=== PATIENT | male | born 1975 | race African-American/Black ===

== ENCOUNTER 2016-06-23 11:28 | Emergency (ER) | payer BC, OTHER ==
[~2016-06-23 11:28] MED LIST: ACET325T9 PO; CIPR250T PO; OMEP20TA63 PO; SULF1TAB24 PO
[2016-06-23 11:48] VITALS: BP 140/82
[2016-06-23 12:41] LABS: BASO % 0 % (0-3); EOS % 0 % (0-3); HEMATOCRIT 45.9 % (39.0-53.0); LYMPH # 5.7 x10^3/uL (1.0-4.8); LYMPH % 34 % (24-48); MEAN CORPUSCULAR HEMOGLOBIN 28 pg (25-35); MEAN CORPUSCULAR HGB CONC 33 g/dL (31-37); MEAN CORPUSCULAR VOLUME 85 fL (79-100); MONO % 8 % (0-9); NEUT % 58 % (31-73); PLATELET COUNT 225 x10^3/uL (140-400); RED BLOOD COUNT 5.42 x10^6/uL (4.30-5.70); RED CELL DISTRIBUTION WIDTH 15.9 % (11.5-14.5); WHITE BLOOD COUNT 16.7 x10^3/uL (4.0-11.0)
[2016-06-23 12:42] LABS: BILIRUBIN,URINE NEGATIVE (NEG); GLUCOSE,URINE NEGATIVE (NEG); NITRITE,URINE NEGATIVE (NEG); PH,URINE 6.5; PROTEIN,URINE NEGATIVE (NEG-TRACE)
[2016-06-23 12:48] LABS: CALCIUM 9.4 mg/dL (8.5-10.1); GFR 101.2; POTASSIUM 3.8 mmol/L (3.5-5.1)
[2016-06-23 12:58] LABS: BACTERIA,URINE 0 /HPF (0-FEW); SPERM,URINE PRESENT /HPF
--- NOTE | 2016-06-23 13:19 | PHYS DOC ---
Past Medical History Past Medical History: UTI, Other Additional Past Medical Histor: chronic pain,NEUROPATHY Past Surgical History: No Surgical History Alcohol Use: Occasionally Drug Use: Phencyclidine Social History Narrative: "I USE PCP EVERY ONCE IN AWHILE" Adult General Chief Complaint Chief Complaint: URINARY RETENTION HPI HPI Patient is a 40 year old male who presents with urinary problem. Patient reports for the past two weeks he has been having some difficulty urinating. He says that he is able to void after multiple tries. In addition, patient reports for the past two weeks he has had mild cough and has felt there is swelling in his throat. No fever. Patient concerned about the possibility of STD; his girlfriend has come to the ED as well with symptoms relating to this. Patient denies any dysuria, penile discharge, skin lesions, penile or testicular pain. Of note, patient currently takes prednisone and gabapentin for a neurological problem for which he follows at (he says he has been going there for a number of months). His symptoms include BLE numbness and weakness. He has undergone extensive workup, including LP and MRI. The current thought is that he has atypical presentation of MS or neurosarcoidosis. He denies any prior difficulty with urination. Patient also says that since he has been taking the steroids his symptoms (weakness in particular) has greatly improved. No problems with bowel movements. No back pain. No other acute complaints. Review of Systems Review of Systems Constitutional: Denies fever or chills Eyes: Denies change in visual acuity or eye pain HENT: Sensation of throat swelling Respiratory: Denies cough or shortness of breath Cardiovascular: Denies chest pain GI: Denies abdominal pain, nausea, vomiting, bloody stools or diarrhea : Difficulty with urination. Denies dysuria or hematuria, penile or testicular pain, skin lesions Musculoskeletal: Denies back pain or joint pain Integument: Denies rash or skin lesions Neurologic: Denies headache, focal weakness or sensory changes Current Medications Current Medications Current Medications Medications (Trade) Dose Ordered Sig/Young Start Time Stop Time Status Last Admin Dose Admin Azithromycin (Zithromax) 1,000 mg 1X ONCE 06/23/16 15:00 06/23/16 15:02 DC 06/23/16 15:00 1,000 MG Ceftriaxone Sodium (Rocephin Im) 250 mg 1X ONCE 06/23/16 15:00 06/23/16 15:02 DC 06/23/16 15:00 250 MG Allergies Allergies Allergies Coded Allergies Type Severity Reaction Last Updated Verified No Known Drug Allergies 08/04/13 No Physical Exam Physical Exam Constitutional: Well developed, well nourished, no acute distress, non-toxic appearance HENT: Normocephalic, atraumatic, bilateral external ears normal; oropharynx without erythema or exudate, airway widely patent Eyes: PERRL, EOMI, conjunctiva normal, no discharge Neck: Normal range of motion, no stridor; no swelling noted, no lymphadenopathy Cardiovascular: Heart rate normal, regular rhythm, no murmur Lungs & Thorax: Bilateral breath sounds clear to auscultation Abdomen: Bowel sounds normal, soft, non-distended, no TTP Skin: Warm, dry, no erythema, no rash Back: No tenderness, no deformity Extremities: No obvious deformity, no edema Neurologic: Alert and oriented X 3, GCS 15, strength in LLE mildly diminished compared to RLE, BLE generally numb to light touch throughout; 2+ DP pulse b/l; patellar reflexes brisk b/l; 4-5 beats of clonus noted in b/l ankles Current Patient Data Vital Signs Vital Signs Date Time Temp Pulse Resp B/P Pulse Ox O2 Delivery O2 Flow Rate FiO2 06/23/16 11:48 98.1 75 18 140/82 98 Room Air 98.1 Lab Values Laboratory Tests Test 06/23/16 11:35 06/23/16 12:31 Urine Collection Type Unknown Urine Color Yellow Urine Clarity Clear Urine pH 6.5 Urine Specific [place] 1.020 Urine Protein Negativemg/dL (NEG-TRACE) Urine Glucose (UA) Negativemg/dL (NEG) Urine Ketones (Stick) Negativemg/dL (NEG) Urine Blood Negative (NEG) Urine Nitrite Negative (NEG) Urine Bilirubin Negative (NEG) Urine Urobilinogen Dipstick 1.0mg/dL (0.2 mg/dL) Urine Leukocyte Esterase Moderate (NEG) Urine RBC 1-2/HPF (0-2) Urine WBC 5-10/HPF (0-4) Urine Bacteria 0/HPF (0-FEW) Urine Mucus Slight/LPF Urine Sperm Present/HPF White Blood Count 16.7x10^3/uL (4.0-11.0) H Red Blood Count 5.42x10^6/uL (4.30-5.70) Hemoglobin 15.0g/dL (13.0-17.5) Hematocrit 45.9% (39.0-53.0) Mean Corpuscular Volume 85fL (79-100) Mean Corpuscular Hemoglobin 28pg (25-35) Mean Corpuscular Hemoglobin Concent 33g/dL (31-37) Red Cell Distribution Width 15.9% (11.5-14.5) H Platelet Count 225x10^3/uL (140-400) Neutrophils (%) (Auto) 58% (31-73) Lymphocytes (%) (Auto) 34% (24-48) Monocytes (%) (Auto) 8% (0-9) Eosinophils (%) (Auto) 0% (0-3) Basophils (%) (Auto) 0% (0-3) Neutrophils # (Auto) 9.6x10^3uL (1.8-7.7) H Lymphocytes # (Auto) 5.7x10^3/uL (1.0-4.8) H Monocytes # (Auto) 1.3x10^3/uL (0.0-1.1) H Eosinophils # (Auto) 0.1x10^3/uL (0.0-0.7) Basophils # (Auto) 0.0x10^3/uL (0.0-0.2) Sodium Level 139mmol/L (136-145) Potassium Level 3.8mmol/L (3.5-5.1) Chloride Level 100mmol/L (98-107) Carbon Dioxide Level 28mmol/L (21-32) Anion Gap 11 (6-14) Blood Urea Nitrogen 18mg/dL (8-26) Creatinine 1.0mg/dL (0.7-1.3) Estimated GFR (Cockcroft-Gault) 101.2 Glucose Level 91mg/dL (70-99) Calcium Level 9.4mg/dL (8.5-10.1) Laboratory Tests 06/23/16 12:31 Laboratory Tests 06/23/16 12:31 EKG EKG [] Radiology/Procedures Radiology/Procedures [] Course & Med Decision Making Course & Med Decision Making Pertinent Labs and Imaging studies reviewed. (See chart for details) Patient is 40-year-old male who presents with difficulty urinating as well as cough and sore throat. Cough and throat is she may be related to allergies, however I do not wish to give him an antihistamine to the concern for worsening any possible urinary retention. Will obtain basic labs, UA, urine screen for gonorrhea and chlamydia. Patient able to void while in ED, and post-void residual bladder scan showed <100cc urine. Labs notable for leukocytosis ( presumably due to prednisone use), otherwise unremarkable. UA equivocal for UTI , although no bacteria seen. Will go ahead and treat with rocephin and azithromycin for suspected STD. I called and spoke with physician with Neurology, Dr. Hull (sp?), to discuss case. No further workup needed while patient in ED here; ok to send home without catheter as he was able to void here. Will have patient follow up as outpatient. Discussed plan with patient, who is agreeable. Will plan discharge home with instructions for close follow up and strict return precautions. Dragon Disclaimer Dragon Disclaimer This electronic medical record was generated, in whole or in part, using a voice recognition dictation system. Departure Departure Impression: Primary Impression: Urinary problem Additional Impression: Possible exposure to STD Disposition: HOME, SELF-CARE Condition: STABLE Referrals: UNKNOWN PCP NAME (PCP) Patient Instructions: Sexually Transmitted Disease, Urinary Retention, Acute, Male Additional Instructions: Thank you for allowing us to provide care today in the Emergency Department. You have been treated with antibiotics that would treat gonorrhea or chlamydia infection. Do not have any intercourse until your partner has also completed treatment. Schedule a follow up appointment with your primary care doctor and with your neurologist. Return promptly to the Emergency Department if you develop any new or concerning symptoms. Problem Qualifiers FRANK RODRÍGUEZ MD Jun 23, 2016 13:19
[2016-06-23] MEDS ORDERED: AZITHROMYCIN 250 MG TABLET. PO ONE (15:00)
[2016-06-23] MEDS ORDERED: CEFTRIAXONE IM 250 MG VIAL. IM ONE (15:00)
== END 2016-06-23 15:34 | disposition home or self-care (01) ==
LOC: ER 11:28
DX: R30.0 Dysuria (principal); Z20.2 Contact with and (suspected) exposure to infections with a predominantly sexual mode of transmission; F16.10 Hallucinogen abuse, uncomplicated; Z87.440 Personal history of urinary (tract) infections
CPT/HCPCS: 36415; 80048; 81001; 85027; 87086; 96372; 99284; J0696; Q0144; 87491; 87591